=== PATIENT | male | born 1990 | race Two or more races ===

== ENCOUNTER 2017-04-14 19:54 | Emergency (ER) | payer MEDICAID, OTHER ==
[~2017-04-14] VITALS: Ht 170.2 cm; Wt 59.0 kg
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
[2017-04-14 22:37] VITALS: BP 128/85
== END 2017-04-14 22:38 | disposition home or self-care (01) ==
LOC: ER 19:57 → EDBD 19:57 → ER 22:38
DX: T51.0X1A Toxic effect of ethanol, accidental (unintentional), initial encounter (principal); Y92.89 Other specified places as the place of occurrence of the external cause
CPT/HCPCS: A4606; Z7610

== ENCOUNTER 2017-05-14 10:48 | Emergency (ER) | payer MEDICAID ==
[~2017-05-14] VITALS: Ht 167.6 cm; Wt 61.2 kg
[2017-05-14 10:54] VITALS: BP 127/84
== END 2017-05-14 15:34 | disposition home or self-care (01) ==
LOC: ER 10:49
DX: F10.129 Alcohol abuse with intoxication, unspecified (principal)
CPT/HCPCS: A4606; Z7610

== ENCOUNTER 2018-04-13 22:37 | Emergency (ER) | payer SELFPAY ==
[~2018-04-13] VITALS: Ht 167.6 cm; Wt 59.0 kg
[2018-04-13 22:59] VITALS: BP 149/95
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
--- NOTE | 2018-04-13 23:50 | NUR ---
pt's laceration being evaulated by . said he will be getting stitches and Tdap shot.
[2018-04-13] MEDS ORDERED: LIDOCAINE 1%-EPI 1:100,000 20 ML VIAL ONE (23:54)
[2018-04-13] MEDS ORDERED: SODIUM BICARBONATE 5 ML VIAL ONE (23:54)
--- NOTE | 2018-04-14 00:07 | NUR ---
VS stable BP 143/79 HR 97 O2 sat on RA 99%
[2018-04-14] MEDS ORDERED: CEPHALEXIN MONOHYDRATE 500 MG CAPSULE PO ONE (00:22)
[2018-04-14] MEDS ORDERED: TDAP [DIPH/PERTUSSIS/TET] 0.5 ML VIAL IM ONE (00:23)
[2018-04-14] MEDS: SODIUM BICARBONATE 5 ML VIAL TP ONE (00:34)
[2018-04-14] MEDS: CEPHALEXIN MONOHYDRATE 500 MG CAPSULE PO ONE (00:34)
[2018-04-14] MEDS: LIDOCAINE 1%-EPI 1:100,000 20 ML VIAL TP ONE (00:34)
[2018-04-14] MEDS: TDAP [DIPH/PERTUSSIS/TET] 0.5 ML VIAL IM ONE (00:36)
--- NOTE | 2018-04-14 00:37 | NUR ---
tdap shot administered on Left Arm IM. LOT#: [id number]; EXP DATE: 12/26/18
--- NOTE | 2018-04-14 00:38 | NUR ---
ALL ORDERED MEDS GIVEN.
--- NOTE | 2018-04-14 00:55 | NUR ---
Patient discharged to home in stable condition. Written and verbal after care instructions given. Patient verbalizes understanding of instruction. Patient left facility on foot with steady gait. No s/s of acute distress or sob noted. vs stable. no c/o pain at this time. per pt statement will be taking bus back home.
== END 2018-04-14 00:58 | disposition home or self-care (01) ==
LOC: ER 22:38
DX: S01.81XA Laceration without foreign body of other part of head, initial encounter (principal); W20.8XXA Other cause of strike by thrown, projected or falling object, initial encounter; Y93.89 Activity, other specified; Y92.89 Other specified places as the place of occurrence of the external cause; Y99.8 Other external cause status; F10.10 Alcohol abuse, uncomplicated; Y90.9 Presence of alcohol in blood, level not specified
CPT/HCPCS: 90715; A6402; A6403; J3490